=== PATIENT | male | born 1950 | race Caucasian/White ===

== ENCOUNTER 2017-12-15 06:15 | Inpatient (IN) ==
[2017-12-05 15:47] LABS: Appearance,Urine CLEAR; Bacteria,Urine 0 /hpf (0); Bilirubin,Urine NEG (NEG); Color,Urine YELLOW; Glucose,Urine (UA) NEGATIVE (NEG); Leukocyte Esterase,Urine NEG /uL (NEG); Mucus,Urine FEW /hpf (0); Protein,Urine NEG (NEG); Specific Gravity,Urine 1.018 (1.000-1.035); Urine Blood 0.2 mg/dL (<0.03); Urine RBC < 1 /hpf (0-1); Urine Squamous Epithelial Cell 0 /hpf (0-4); Urine WBC 0 /hpf (0-4); Urobilinogen,Urine NEG (NEG)
[2017-12-05 17:59] LABS: Basophils # (Auto) 0 K/mcL (0.0-0.3); Basophils % (Auto) 0.5 % (0.0-2.0); Eosinophils # (Auto) 0.4 K/mcL (0.0-0.7); Eosinophils % (Auto) 4.3 % (0.0-7.0); Granulocytes % (Auto) 58.4 % (38.0-78.0); Lymphocytes # (Auto) 2.4 K/mcL (1.5-4.8); Lymphocytes % (Auto) 26.9 % (15.5-49.0); Mean Cell Volume 91.5 fL (80.0-100.0); Mean Corpuscular HGB Conc 33.4 g/dL (31.0-36.0); Mean Corpuscular Hemoglobin 30.5 pg (26.0-34.0); Monocytes # (Auto) 0.9 K/mcL (0.1-0.9); Monocytes % (Auto) 9.9 % (1.0-12.0); Platelet Count 255 K/mcL (140-440); RBC 5.04 M/mcL (4.50-5.90); Red Cell Distribution Width 14.1 % (11.5-14.5)
[2017-12-05 18:05] LABS: Blood Urea Nitrogen 22 mg/dl (8-23)
[2017-12-15] MEDS ORDERED: ceFAZolin 1 GM VIAL IV SCH (07:00)
[2017-12-15] MEDS ORDERED: 0.9 % SODIUM CHLORIDE 9 ML, KETOROLAC 30 MG, ROPIVACAINE HCL/PF 49.5 ML, EPINEPHrine 0.... IJ SCH (07:00)
[2017-12-15] MEDS ORDERED: CELECOXIB 200 MG CAPSULE PO SCH (07:00)
[2017-12-15] MEDS ORDERED: oxyCODONE 10 MG TAB.ER.12H PO SCH (07:00)
[2017-12-15] MEDS ORDERED: PREGABALIN 75 MG CAPSULE PO SCH (07:00)
[2017-12-15] MEDS ORDERED: ACETAMINOPHEN 500 MG TABLET PO SCH (07:00)
[2017-12-15] MEDS ORDERED: ACETAMINOPHEN 325 MG TABLET PO PRN (08:25)
[2017-12-15] MEDS ORDERED: HYDROmorphone 2 MG/ML VIAL IV PRN ×2 (08:25→10:03)
[2017-12-15] MEDS ORDERED: ONDANSETRON 4 MG/2 ML VIAL IV PRN (08:25)
[2017-12-15] MEDS ORDERED: KETOROLAC 15 MG/ML VIAL IV PRN (08:25)
[2017-12-15] MEDS ORDERED: MAGNESIUM HYDROXIDE 30 ML ORAL.SUSP PO PRN (08:25)
[2017-12-15] MEDS ORDERED: TRANEXAMIC ACID 1,000 MG/10 ML VIAL IV SCH (08:25)
[2017-12-15] MEDS ORDERED: BENZOCAINE/MENTHOL 1 LOZENGE PO PRN (08:25)
[2017-12-15] MEDS ORDERED: FLEETS ADULT ENEMA PR PRN (08:25)
[2017-12-15] MEDS ORDERED: BISACODYL 10 MG SUPP.RECT PR PRN (08:25)
--- NOTE | 2017-12-15 08:25 | Brief Operative Note ---
Date of procedure: 12/15/17 Pre-op diagnosis: roght hip djd Post-op diagnosis: same Procedure: right ezio Grafts/Implants: Yes Anesthesia: GETA Surgeon: Woodrow Manriquez Disposal Worker: Delano Odell Estimated blood loss (cc): 50 Specimens Removed/Pathology: none sent Condition: stable Disposition: PACU
[2017-12-15] MEDS ORDERED: MIDAZOLAM 2 MG/2 ML VIAL ONE (08:42)
[2017-12-15] MEDS ORDERED: PROPOFOL 200 MG/20 ML VIAL IV ONE (08:42)
[2017-12-15] MEDS ORDERED: ONDANSETRON 4 MG/2 ML VIAL ONE (08:42)
[2017-12-15] MEDS ORDERED: LIDOCAINE HCL/PF 100 MG/5 ML SYRINGE IV ONE (08:42)
[2017-12-15] MEDS ORDERED: KETAMINE 100 MG/ML ML ONE (08:42)
[2017-12-15] MEDS ORDERED: GLYCOPYRROLATE 0.2 MG/ML VIAL IV ONE (08:42)
[2017-12-15] MEDS ORDERED: ASPIRIN 81 MG TAB.CHEW PO SCH (09:00)
[2017-12-15] MEDS ORDERED: GENTAMICIN SULFATE 800 MG/20 ML VIAL IR ONE (09:16)
[2017-12-15] MEDS ORDERED: fentaNYL 100 MCG/2 ML VIAL IV PRN (10:03)
[2017-12-15] MEDS ORDERED: IPRATROPIUM/ALBUTEROL 3 ML AMPUL.NEB NEB PRN (10:03)
[2017-12-15] MEDS ORDERED: MEPERIDINE 25 MG/ML SYRINGE IV PRN (10:03)
[2017-12-15] MEDS ORDERED: METHOCARBAMOL 1,000 MG/10 ML VIAL IV PRN (10:03)
[2017-12-15] MEDS ORDERED: LACTATED RINGERS 1,000 ML IV SCH (10:15)
[2017-12-15] MEDS: FISH OIL 1,000 MG CAPSULE PO SCH (10:37)
[2017-12-15] MEDS: ASPIRIN 325 MG ENTERIC COATED TABLET PO SCH ×2 (10:37→21:27)
[2017-12-15] MEDS: DOCUSATE SODIUM 100 MG CAPSULE PO SCH ×2 (10:37→21:28)
--- NOTE | 2017-12-15 10:49 | XRay Report ---
CLINICAL INFORMATION: Post-op Total Hip COMPARISON: None. FINDINGS: Right total hip prostheses is anatomically aligned. No osseous abnormalities. Minimal degenerative change seen in the left hip with moderate bilateral SI joint degeneration. Mild soft tissue swelling seen in the surgical site - as expected IMPRESSION: Negative Interpreted and Authenticated by: Zain Esposito 12/15/17
[2017-12-15] MEDS: 0.45 % SODIUM CHLORIDE 1,000 ML IV SCH ×2 (10:57→21:28)
--- NOTE | 2017-12-15 10:57 | Operative Note ---
DATE OF OPERATION: 12/15/2017 PREOPERATIVE DIAGNOSIS: Right hip degenerative arthritis. POSTOPERATIVE DIAGNOSIS: Right hip degenerative arthritis. PROCEDURE: Right total hip arthroplasty with cementless components from [employer]. SURGEON: Woodrow Manriquez M.D. STOPPERER ASSEMBLER: Delano Odell PA-C. ANESTHESIA: General LMA anesthesia. COMPLICATIONS: None. ESTIMATED BLOOD LOSS: 50 mL. DISPOSITION: To PACU in stable condition. DESCRIPTION OF PROCEDURE: The patient was brought to the operating room, confirmed the right hip as the operative site, put to sleep with general LMA anesthesia after a spinal anesthesia as well. Turned in a left lateral position and confirmed the site both with consent form, x-rays, and initials. Pre-op antibiotics were given, tranexamic acid given. The patient was sterilely prepped and draped, and Ioban was placed over the skin to isolate it from the operative field. Once this had all been done, we then made a superior approach to the hip, about a 3.5-inch incision, dissected through the gluteus ksenia and placed the Charnley retractor. The superior capsule was released, dislocated the hip superiorly, and then made our neck cut at 36 mm from the center of hip rotation. Hip was subluxed anteriorly. I then reamed up to the size of a 58 cup. A 58 cup implanted, broached up on the femoral side up to a size 6. Took x-rays. Though the leg length was quite excellent, the fit and fill was not as excellent. We then went to a size 7, confirmed leg length and placed the 2.5 ball with a 36 mm head. The hip was very stable up to 90 degrees. We irrigated thoroughly and then repaired the capsule posteriorly. The fascial layer was closed with #1 Stratafix x2 sutures. We closed the fascial layer with #1 Stratafix and then adhesive closure. The patient tolerated this well. Blood loss about 50 mL. RBH:tamara Job ID: [id number] Doc ID: [id number] Woodrow Manriquez MD
--- NOTE | 2017-12-15 11:02 | XRay Report ---
CLINICAL INFORMATION: INTRA OP RIGHT TOTAL HIP ARTHROPLASTY COMPARISON: None. FINDINGS: Intraoperative film shows right prosthetic acetabulum to be in near-anatomic alignment. Right femoral stem template is also anatomically aligned. No osseous abnormality.. Soft tissues gas and swelling seen as as expected IMPRESSION: Negative Interpreted and Authenticated by: Zain Esposito 12/15/17
[2017-12-15] MEDS: 0.9 % SODIUM CHLORIDE 10 ML SYRINGE IV SCH ×2 (13:53→21:40)
[2017-12-15] MEDS: oxyCODONE/APAP 5/325MG TABLET PO PRN ×2 (16:15→21:27)
[2017-12-15] MEDS: ceFAZolin 1 GM VIAL IV SCH (17:18)
--- NOTE | 2017-12-15 17:30 | Operative Note ---
DATE OF OPERATION: 12/15/2017 PREOPERATIVE DIAGNOSIS: Right hip degenerative arthritis, severe. POSTOPERATIVE DIAGNOSIS: Right hip degenerative arthritis, severe. PROCEDURE: Right total hip arthroplasty. SURGEON: Woodrow Manriquez M.D. GRAIN COMBINE DRIVER: Delano Odell PA-C. ANESTHESIA: General LMA anesthesia. COMPLICATIONS: None. ESTIMATED BLOOD LOSS: About 100 mL. No blood products were given. IMPLANTS: [employer] cementless components. DESCRIPTION OF PROCEDURE: The patient was brought to the operating room and put to sleep with general LMA anesthesia. Once asleep, the patient had the right hip sterilely prepped and draped in the usual sterile fashion. We confirmed this intraoperatively both by consent form, x-rays, and initials on the skin. Once done, we then sterilely prepped the right hip and turned into a left lateral position and a superior approach was performed. Through this, we went through the fascial layer and identified the superior capsule which was then released. We dislocated the hip superiorly. Severe arthritis throughout the joint. The neck cut was then made as preoperatively templated which was 36 mm in length. Once done, the hip was then subluxed anteriorly, and then we reamed up the acetabulum to size 58, implanted a 58 cup with a 30 mm screw for stability. A non-hooded liner for a 36 mm ball was placed. The cup was placed in 40 degrees of inclination and 20 degrees of anteversion. We irrigated thoroughly and then prepared the femur. The femur had a Floq cutter to lateralize as well as a lateralized reamer. Broaching up to the size of 7, this seemed to fit nicely. We trialed the size 6 which was a little small for the canal, as well as about equal for leg length. At this point after taking an x-ray to confirm this, we then checked stability which was very stable up to 90 degrees rotation without dislocation. We then dislocated the hip and placed a cementless stem size 7 after broaching and countersinking the stem two more millimeters and then fitted with a 2.5 head. This gave perfect leg lengths. We irrigated, very stable throughout the arc of motion. We repaired the capsule posteriorly with #2 Ethibond x2 sutures. We irrigated thoroughly and injected the soft tissues around the hip with a post-inject formula. The fascial layer to the gluteus ksenia was closed with #1 Stratafix, and the skin was closed with #1 Stratafix and adhesive closure. The patient tolerated this well without complication. RBИван:tamara Job ID: [id number] Doc ID: [id number] Woodrow Manriquez MD
[2017-12-15] MEDS: SIMVASTATIN 20 MG TABLET PO SCH (21:27)
[2017-12-15] MEDS: SENNOSIDES 1 TABLET PO SCH (21:28)
[2017-12-15] MEDS: TEMAZEPAM 15 MG CAPSULE PO PRN (22:06)
[2017-12-16] MEDS: ceFAZolin 1 GM VIAL IV SCH (01:10)
[2017-12-16] MEDS: oxyCODONE/APAP 5/325MG TABLET PO PRN ×5 (01:16→18:28)
[2017-12-16] MEDS: 0.45 % SODIUM CHLORIDE 1,000 ML IV SCH ×2 (03:54→14:35)
[2017-12-16] MEDS: 0.9 % SODIUM CHLORIDE 10 ML SYRINGE IV SCH ×3 (04:40→20:52)
--- NOTE | 2017-12-16 07:37 | Orthopedic Progress Note ---
Subjective Patient information: Note initiated : 12/16/17 at 7:36 am Service Date, if different from initiated Date: [] Patient: Walker Bird 67 y/o M admitted on 12/15/17 for Right Total Hip Arthroplasty . Chief Complaint: [Pt is stable this morning on post operative day 1 without any significant concerns or complaints. Patients vital signs have remained stable. Patients dressing is dry and is grossly intact from a neurovascular and motor standpoint. Patients 10 point ROS is otherwise negative. ] Objective Vital signs: Vital Signs Temp Pulse Pulse Resp BP BP BP 12/16/17 04:00 98.0 F 74 16 119/68 12/16/17 00:00 98.2 F 67 16 108/67 12/15/17 23:00 12/15/17 20:00 97.7 F 73 20 122/77 12/15/17 17:26 12/15/17 15:22 97.3 F 12 156/94 12/15/17 15:00 12/15/17 13:44 12/15/17 13:36 53 L 131/80 12/15/17 12:06 45 L 123/78 12/15/17 11:36 59 L 131/72 12/15/17 11:20 54 L 131/80 12/15/17 11:06 50 L 127/84 12/15/17 10:50 55 L 18 128/84 12/15/17 10:43 96.4 F L 60 13 135/79 12/15/17 10:35 96.9 F L 62 28 H 111/78 12/15/17 10:25 96.7 F L 70 19 118/70 12/15/17 10:20 73 18 115/68 12/15/17 10:15 61 16 112/63 12/15/17 10:10 98.3 F 68 30 H 119/68 12/15/17 09:23 97.9 F 74 18 147/88 Pulse Ox 12/16/17 04:00 96 12/16/17 00:00 98 12/15/17 23:00 98 12/15/17 20:00 99 12/15/17 17:26 99 12/15/17 15:22 100 12/15/17 15:00 100 12/15/17 13:44 98 12/15/17 13:36 99 12/15/17 12:06 99 12/15/17 11:36 98 12/15/17 11:20 98 12/15/17 11:06 100 12/15/17 10:50 96 12/15/17 10:43 100 12/15/17 10:35 100 12/15/17 10:25 100 12/15/17 10:20 100 12/15/17 10:15 100 12/15/17 10:10 96 12/15/17 09:23 99 Intake and Output 12/15/17 12/16/17 12/16/17 21:59 05:59 13:59 Intake Total 1240 / 1240 750 / 750 Output Total 550 / 550 400 / 400 Balance 690 / 690 350 / 350 Intake: IV 1000 / 1000 Sodium Chloride 0.45% 1,000 ml 1000 / 1000 @ 100 mls/hr IV .Q10H TROY Rx#: [id number] Oral 240 / 240 750 / 750 Output: Void Amount 550 / 550 400 / 400 Other: Meal Dinner Percent of Meal Consumed 100% Feeding Ability Independent Urine Appearance Clear Clear Urine Color Dark Yellow Straw Urine Odor Normal Normal Weight 261 lb Intake & Output: Intake & Output 12/15/17 12/16/17 12/16/17 21:59 05:59 13:59 Intake Total 1240 / 1240 750 / 750 Output Total 550 / 550 400 / 400 Balance 690 / 690 350 / 350 Weight 261 lb Intake: IV 1000 / 1000 Sodium Chloride 0.45% 1,000 ml 1000 / 1000 @ 100 mls/hr IV .Q10H TROY Rx#: [id number] Oral 240 / 240 750 / 750 Output: Void Amount 550 / 550 400 / 400 Other: Meal Dinner Percent of Meal Consumed 100% Feeding Ability Independent Urine Appearance Clear Clear Urine Color Dark Yellow Straw Urine Odor Normal Normal Incision: Yes healing Incision clean and dry: Yes Dressing: Yes clean Weight bearing status: full Neurological exam IM: Yes motor sensory intact, Yes neurovascular intact Extremities exam IM: Yes Foot pink and warm, Yes neurovascular intact - Labs CBC & BMP: 12/16/17 04:25 12/05/17 14:29 Labs: Orthopedic Labs 12/15/17 12/05/17 06:30 14:28 PT 12.6 INR 0.9 APTT 29 12/16/17 12/05/17 04:25 14:28 Hgb 15.4 Hct 37.5 L 46.1 Assessment and Plan (1) Hx of total hip arthroplasty The patient has been educated regarding dressing care, Physical Therapy recommendations, home exercises, restrictions, and follow up appointments. The patient has had all necessary DME prescribed. The patient has remained relatively stable during their hospital course. Leave Dermabond patch intact until followup Status: Acute
--- NOTE | 2017-12-16 07:40 | Discharge Summary ---
Ortho Discharge - JOSE - Patient Instructions Diet: Regular Diet Activity: activity as tolerated, weight bearing as tolerated Total Hip Protocol: Follow activity instructions as provided by Physical Therapy. Dressing Care: May shower in 2 days - Problem Maintenance (1) Hx of total hip arthroplasty Status: Acute - Follow Up Plan Follow Up Appointments: Delano Odell PA-C [Physician Sleep Manager] - 12/30/17 1:10 pm Disposition: Xfer SNF Prognosis: Good Rehab Potential: Good I certify that the patient requires SNF services: Yes (Pt likely will not meet this criteria but was preapproved by insurance) Overall status at discharge: patient is progressing back to baseline - Orders For Discharge Prescriptions: Aspirin [Ecotrin] 325 mg PO BID #60 tab.ec Docusate Sodium [Colace] 100 mg PO BID #60 cap oxyCODONE/APAP [Percocet 5-325 mg] 1 - 2 tab PO Q4HP PRN #75 tab PRN Reason: Pain Level 3-6
[2017-12-16] MEDS: FERROUS SULFATE 325 MG TABLET PO SCH (08:13)
[2017-12-16] MEDS: FISH OIL 1,000 MG CAPSULE PO SCH (08:13)
[2017-12-16] MEDS: DOCUSATE SODIUM 100 MG CAPSULE PO SCH ×2 (08:13→20:52)
[2017-12-16] MEDS: ASPIRIN 325 MG ENTERIC COATED TABLET PO SCH ×2 (08:13→20:51)
[2017-12-16] MEDS: SENNOSIDES 1 TABLET PO SCH (20:51)
[2017-12-16] MEDS: TEMAZEPAM 15 MG CAPSULE PO PRN (20:51)
[2017-12-17] MEDS: 0.45 % SODIUM CHLORIDE 1,000 ML IV SCH ×3 (00:43→22:24)
[2017-12-17] MEDS: oxyCODONE/APAP 5/325MG TABLET PO PRN ×4 (01:59→19:04)
[2017-12-17] MEDS: 0.9 % SODIUM CHLORIDE 10 ML SYRINGE IV SCH ×3 (05:49→20:23)
[2017-12-17] MEDS: FISH OIL 1,000 MG CAPSULE PO SCH (08:54)
[2017-12-17] MEDS: ASPIRIN 325 MG ENTERIC COATED TABLET PO SCH ×2 (08:54→20:23)
[2017-12-17] MEDS: FERROUS SULFATE 325 MG TABLET PO SCH (08:54)
[2017-12-17] MEDS: DOCUSATE SODIUM 100 MG CAPSULE PO SCH ×2 (08:54→20:23)
--- NOTE | 2017-12-17 12:03 | Orthopedic Progress Note ---
Subjective Patient information: Note initiated : 12/17/17 at 12:02 pm Service Date, if different from initiated Date: [] Patient: Walker Bird 67 y/o M admitted on 12/15/17 for Right Total Hip Arthroplasty . Chief Complaint: [with no complaints and eating and drinking and walking well.] Objective Vital signs: Vital Signs Temp Pulse Resp BP BP Pulse Ox 12/17/17 10:00 97 12/17/17 08:00 97.8 F 85 20 154/79 98 12/17/17 06:42 76 16 96 12/17/17 04:00 97.8 F 77 20 106/66 95 12/17/17 00:00 98.1 F 70 20 146/85 93 12/16/17 20:00 98.2 F 85 22 118/73 94 12/16/17 18:05 97 12/16/17 16:00 98.7 F 85 16 127/77 96 12/16/17 14:24 96 Intake and Output 12/16/17 12/17/17 12/17/17 21:59 05:59 13:59 Intake Total 1040 / 1040 200 / 200 240 / 240 Output Total 450 / 450 1750 / 1750 300 / 300 Balance 590 / 590 -1550 / -1550 -60 / -60 Intake: Oral 1040 / 1040 200 / 200 240 / 240 Output: Void Amount 450 / 450 1750 / 1750 300 / 300 Other: Meal Dinner Breakfast Percent of Meal Consumed 100% 100% Feeding Ability Independent Independent Urine Appearance Clear Urine Color Dark Yellow Urine Odor Normal Weight 261 lb Intake & Output: Intake & Output 12/16/17 12/17/17 12/17/17 21:59 05:59 13:59 Intake Total 1040 / 1040 200 / 200 240 / 240 Output Total 450 / 450 1750 / 1750 300 / 300 Balance 590 / 590 -1550 / -1550 -60 / -60 Weight 261 lb Intake: Oral 1040 / 1040 200 / 200 240 / 240 Output: Void Amount 450 / 450 1750 / 1750 300 / 300 Other: Meal Dinner Breakfast Percent of Meal Consumed 100% 100% Feeding Ability Independent Independent Urine Appearance Clear Urine Color Dark Yellow Urine Odor Normal Incision: Yes healing Incision clean and dry: Yes Dressing: Yes clean Weight bearing status: full Neurological exam IM: Yes oriented X3, Yes neurovascular intact Extremities exam IM: Yes Foot pink and warm (dc to snf in am ), Yes neurovascular intact - Labs CBC & BMP: 12/16/17 04:25 12/05/17 14:29 Labs: Orthopedic Labs 12/15/17 12/05/17 06:30 14:28 PT 12.6 INR 0.9 APTT 29 12/16/17 12/05/17 04:25 14:28 Hgb 15.4 Hct 37.5 L 46.1
[2017-12-17] MEDS: POLYETHYLENE GLYCOL 3350 17 GM PACKET PO PRN (19:10)
[2017-12-17] MEDS: SENNOSIDES 1 TABLET PO SCH (20:23)
[2017-12-17] MEDS: TEMAZEPAM 15 MG CAPSULE PO PRN (20:23)
[2017-12-17] MEDS: SIMVASTATIN 20 MG TABLET PO SCH (20:23)
[2017-12-18] MEDS: oxyCODONE/APAP 5/325MG TABLET PO PRN (01:04)
[2017-12-18] MEDS: 0.9 % SODIUM CHLORIDE 10 ML SYRINGE IV SCH (06:41)
[2017-12-18] MEDS: ASPIRIN 325 MG ENTERIC COATED TABLET PO SCH (08:47)
[2017-12-18] MEDS: POLYETHYLENE GLYCOL 3350 17 GM PACKET PO PRN (08:47)
[2017-12-18] MEDS: FERROUS SULFATE 325 MG TABLET PO SCH (08:47)
[2017-12-18] MEDS: DOCUSATE SODIUM 100 MG CAPSULE PO SCH (08:48)
[2017-12-18] MEDS: FISH OIL 1,000 MG CAPSULE PO SCH (08:48)
[2017-12-18] MEDS: 0.45 % SODIUM CHLORIDE 1,000 ML IV SCH (08:51)
== END 2017-12-18 10:37 | DRG 470 ==
LOC: MEDSUR 06:15
PROVIDERS: ADMIT Orthopaedic Surgery; ATTEND Orthopaedic Surgery